=== PATIENT | male | born 1945 | race Caucasian/White ===

== ENCOUNTER → 2019-10-04 | Day surgery (SDC) | payer MEDICARE, MEDICAID ==
[2019-10-01 15:39] LABS: BASOPHILS # (AUTO) 0.1 X10'3 (0-0.2); BASOPHILS % (AUTO) 0.8 % (0-1); EOSINOPHILS # (AUTO) 0.3 X10'3 (0-0.9); EOSINOPHILS % (AUTO) 4.1 % (0-6); LYMPHOCYTES # (AUTO) 1.7 X10'3 (1.1-4.8); LYMPHOCYTES % (AUTO) 26.7 % (21-51); MEAN CORPUSCULAR HEMOGLOBIN 30.8 PG (27.0-31.0); MEAN CORPUSCULAR HGB CONC 33.4 g/dL (33.0-36.5); MEAN CORPUSCULAR VOLUME 92.2 FL (78-98); MEAN PLATELET VOLUME 8.6 FL (7.4-10.4); MONOCYTES # (AUTO) 0.6 X10'3 (0-0.9); MONOCYTES % (AUTO) 9.5 % (2-12); NEUTROPHILS # (AUTO) 3.7 X10'3 (1.8-7.7); NEUTROPHILS % (AUTO) 58.9 % (42-75); PRE OP HEMATOCRIT 37.4 % (42.0-52.0); PRE OP HEMOGLOBIN 12.5 g/dL (14.0-17.9); PRE OP PLATELET COUNT 211 X10'3 (140-440); RED BLOOD COUNT 4.06 X10'6 (4.70-6.10); RED CELL DISTRIBUTION WIDTH 13.9 % (11.5-14.5)
[2019-10-01 15:53] LABS: ALBUMIN 3.6 G/DL (3.4-5.0); ALBUMIN/GLOBULIN RATIO 1.1 (1.1-1.5); ALKALINE PHOSPHATASE 118 IU/L (46-116); BLOOD UREA NITROGEN 16 MG/DL (7-18); BUN/CREATININE RATIO 18.8 (5.4-32.0); CALCIUM 8.4 MG/DL (8.5-10.1); CHLORIDE 108 MMOL/L (99-107); CREATININE 0.85 MG/DL (0.60-1.10); PRE OP ALT 32 U/L (30-65); PRE OP ANION GAP 11 (8-16); PRE OP AST 19 U/L (10-37); PRE OP BILIRUB, TOTAL 0.4 MG/DL (0.0-1.0); PRE OP GLUCOSE 122 MG/DL (70-104); PRE OP POTASSIUM 3.9 MMOL/L (3.4-5.1); PRE OP SODIUM 144 MMOL/L (135-145); TOTAL CARBON DIOXIDE 25.1 MMOL/L (24-32); TOTAL PROTEIN 6.9 G/DL (6.4-8.2); eGFR 88 ML/MIN
[~2019-10-04] VITALS: Ht 182.9 cm; Wt 98.0 kg
[~2019-10-04] MED LIST: 0.9 % SODIUM CHLORIDE 10 ML VIAL ONE; ATOR40TA72 PO; BUPIVAcaine/PF 2.5mg/ml (0.25%) 10ml vial ONE; DOCUMENT DATE & TIME OF BETA-BLOCKER PO ONE; FINA5TAB11 PO; FLO0.4C PO; LIDOcaine 1% (10mg/ml) 2ml vial ONE; LIDOcaine 1% 30ml preserv. free vial ONE; MIDAZolam 5mg/5ml vial ONE; OMEP-50 PO; PROP20TA6 PO; ROPI2TAB5 PO; cefazolin/dext.iso 2gm/100ml 100 ML IV ONE; famotidine 20mg tablet PO ONE; fentaNYL/PF 50MCG/1 ML 2ML syringe ONE; ketorolac trometh. 30mg/ml inj. ONE; meperidine/PF 25mg/ml syringe IV PRN; morphine 4 MG/ML inj SYRINge IV PRN; ondansetron/PF 4mg/2ml inj IV PRN; proCHLORperazine 10 MG/2 ml inj IV PRN; propofol inj 20 ML IV ONE; ringers solution, lacted 1,000 ML IV SCH; triamcinolone acetonide 40mg/ml inj ONE
[2019-10-04 09:30] VITALS: BP_SYST 144; BP_SYST 151; BP_DIAS 87; BP_DIAS 88
--- NOTE | 2019-10-04 09:30 | NUR ---
Received from OR via , accompanied by Anesthesiologist DR CUBA and report given by Anesthesiolgist. PT IS SLEEPY BUT OPENS EYES TO VOICE, SKIN WARM AND PINK, MOVING EXT X 4, RIGHT HAND SPLINT WITH VENANCIO WRAP CD, PIV LEFT AC 20G PATENT WITH LR 100MLS/HR, NO C/O PAIN, VSS.
[2019-10-04 09:40] VITALS: BP 129/79
[2019-10-04 09:50] VITALS: BP 140/87
[2019-10-04 10:00] VITALS: BP 146/82
== END | disposition home or self-care (01) ==
LOC: PAS 05:33
PROVIDERS: ATTEND Orthopaedic Surgery Hand Surgery
DX: M19.041 Primary osteoarthritis, right hand (principal); M18.0 Bilateral primary osteoarthritis of first carpometacarpal joints; N40.0 Benign prostatic hyperplasia without lower urinary tract symptoms; K21.9 Gastro-esophageal reflux disease without esophagitis; Z98.890 Other specified postprocedural states; Z88.8 Allergy status to other drugs, medicaments and biological substances; Z79.899 Other long term (current) drug therapy
CPT/HCPCS: 20600; 26860; 26861; 36415; 80053; 82948; 85025; 93005; C1713; J1885; J2001; J2250; J2704; J3010; J3301; J3490; J7120; A4215; A4618; A7000

== ENCOUNTER 2020-01-27 06:17 | Day surgery (SDC) | payer MEDICARE, MEDICAID ==
[2020-01-21 10:40] LABS: BASOPHILS % (AUTO) 0.6 % (0-1); EOSINOPHILS # (AUTO) 0.1 X10'3 (0-0.9); LYMPHOCYTES # (AUTO) 1.2 X10'3 (1.1-4.8); LYMPHOCYTES % (AUTO) 16.8 % (21-51); MEAN CORPUSCULAR HEMOGLOBIN 29.7 PG (27.0-31.0); MEAN CORPUSCULAR HGB CONC 33.3 g/dL (33.0-36.5); MEAN CORPUSCULAR VOLUME 89.4 FL (78-98); MEAN PLATELET VOLUME 8.2 FL (7.4-10.4); MONOCYTES # (AUTO) 0.7 X10'3 (0-0.9); MONOCYTES % (AUTO) 9.8 % (2-12); NEUTROPHILS # (AUTO) 5.2 X10'3 (1.8-7.7); NEUTROPHILS % (AUTO) 70.8 % (42-75); PRE OP HEMATOCRIT 41.1 % (42.0-52.0); PRE OP HEMOGLOBIN 13.7 g/dL (14.0-17.9); PRE OP PLATELET COUNT 204 X10'3 (140-440); RED BLOOD COUNT 4.59 X10'6 (4.70-6.10); RED CELL DISTRIBUTION WIDTH 14.5 % (11.5-14.5)
[2020-01-21 10:55] LABS: ALBUMIN 3.5 G/DL (3.4-5.0); ALKALINE PHOSPHATASE 101 IU/L (46-116); BLOOD UREA NITROGEN 11 MG/DL (7-18); BUN/CREATININE RATIO 11.6 (5.4-32.0); CALCIUM 8.4 MG/DL (8.5-10.1); CHLORIDE 106 MMOL/L (99-107); CREATININE 0.95 MG/DL (0.60-1.10); PRE OP ALT 31 U/L (30-65); PRE OP ANION GAP 6 (8-16); PRE OP AST 22 U/L (10-37); PRE OP BILIRUB, TOTAL 0.5 MG/DL (0.0-1.0); PRE OP GLUCOSE 99 MG/DL (70-104); PRE OP POTASSIUM 4.2 MMOL/L (3.4-5.1); PRE OP SODIUM 139 MMOL/L (135-145); TOTAL CARBON DIOXIDE 26.7 MMOL/L (24-32); TOTAL PROTEIN 6.9 G/DL (6.4-8.2); eGFR 78 ML/MIN
[~2020-01-27] VITALS: Ht 182.9 cm; Wt 99.4 kg
[2020-01-27] VITALS (9 sets, daily range): BP systolic 115–129; BP diastolic 68–86
[~2020-01-27 06:17] MED LIST changes: -0.9 % SODIUM CHLORIDE 10 ML VIAL ONE; +ASPI-1265 PO; -BUPIVAcaine/PF 2.5mg/ml (0.25%) 10ml vial ONE; -LIDOcaine 1% (10mg/ml) 2ml vial ONE; -LIDOcaine 1% 30ml preserv. free vial ONE; -MIDAZolam 5mg/5ml vial ONE; -ROPI2TAB5 PO; +ROPI2TAB7 PO; -fentaNYL/PF 50MCG/1 ML 2ML syringe ONE; -ketorolac trometh. 30mg/ml inj. ONE; -meperidine/PF 25mg/ml syringe IV PRN; -morphine 4 MG/ML inj SYRINge IV PRN; -ondansetron/PF 4mg/2ml inj IV PRN; -proCHLORperazine 10 MG/2 ml inj IV PRN; -propofol inj 20 ML IV ONE; -triamcinolone acetonide 40mg/ml inj ONE
[2020-01-27] MEDS ORDERED: BUPIVAcaine/PF 2.5mg/ml (0.25%) 10ml vial ONE (06:40)
[2020-01-27] MEDS ORDERED: LIDOcaine 0.5% (5mg/ml) 50ml vial ONE (09:07)
[2020-01-27] MEDS ORDERED: midazolam 2 mg/2 ml injection ONE ×2 (09:08→09:16)
[2020-01-27] MEDS ORDERED: fentaNYL/PF 50MCG/1 ML 2ML syringe ONE (09:08)
[2020-01-27] MEDS ORDERED: ketamine 50mg/5ml syringe ONE (09:20)
[2020-01-27] MEDS ORDERED: propofol inj 20 ML IV ONE (10:22)
[2020-01-27] MEDS ORDERED: ondansetron/PF 4mg/2ml inj ONE (10:22)
[2020-01-27] MEDS ORDERED: LIDOcaine 1%/PF 5ML 10 MG/ML VIAL ONE (10:22)
--- NOTE | 2020-01-27 11:00 | NUR ---
Received from OR via BED , accompanied by Anesthesiologist DR CHAPPELL and report given by Anesthesiolgist. PATIENT A&OX4, DENIES PAIN, V/S WNL, NEUROVASCULAR CHECKLS INTACT, 20G PIV TO RUE, SCD ON, DRESSING /SPLINT TO LUE WHICH IS ELEVATED AND ICE APPLIED PER MD. PATIENT INSTRUCTED TO WIGGLE FINGERS OFTEN.
--- NOTE | 2020-01-27 12:00 | NUR ---
PATIENT A&OX4, DENIES PAIN, V/S WNL, NEUROVASCULAR CHECKLS INTACT, 20G PIV TO RUE D/C, SCD OFF, DRESSING /SPLINT TO LUE WHICH IS ELEVATED AND ICE APPLIED PER MD. PATIENT INSTRUCTED TO WIGGLE FINGERS OFTEN. I HAVE REVIEWED D/C INSTRUCTIONS WITH PATIENT AND FAMILY WHO VERBALIZES UNDERSTANDING. PATIENT D/C HOME WITH ALL BELONGINGS, TRANSPORTED TO [facility] VIA WC.
== END 2020-01-27 12:00 | disposition home or self-care (01) ==
LOC: PAS 06:17
PROVIDERS: ATTEND Orthopaedic Surgery Hand Surgery
DX: M19.042 Primary osteoarthritis, left hand (principal); M18.11 Unilateral primary osteoarthritis of first carpometacarpal joint, right hand; M19.072 Primary osteoarthritis, left ankle and foot; M19.041 Primary osteoarthritis, right hand; M19.071 Primary osteoarthritis, right ankle and foot; Z79.82 Long term (current) use of aspirin; Z79.899 Other long term (current) drug therapy; Z88.8 Allergy status to other drugs, medicaments and biological substances; Z98.890 Other specified postprocedural states
CPT/HCPCS: 26860; 26861; 36415; 80053; 82948; 85025; A6222; C1713; J2001; J2250; J2405; J2704; J3010; J3490; J7120; A4215; A4618; A7000